=== PATIENT | female | born 1995 | race Caucasian/White ===

== ENCOUNTER 2023-01-14 17:07 | Emergency (ER) | payer BC ==
[~2023-01-14] VITALS: Ht 165.1 cm; Wt 113.0 kg
[2023-01-14 17:21] VITALS: BP 130/90
[2023-01-14] MEDS ORDERED: ACETAMINOPHEN 325MG TABLET PO ONE (18:30)
[2023-01-14] MEDS ORDERED: TOPUD PO (19:30)
== END 2023-01-14 20:00 | disposition home or self-care (01) ==
LOC: ER 17:07
DX: S00.93XA Contusion of unspecified part of head, initial encounter (principal); Y08.89XA Assault by other specified means, initial encounter; Y93.89 Activity, other specified; Y92.89 Other specified places as the place of occurrence of the external cause; Y99.8 Other external cause status
CPT/HCPCS: 73560; 81025; 99284